=== PATIENT | female | born 1965 | race Two or more races ===

== ENCOUNTER 2021-10-03 11:40 | Emergency (ER) | payer SELFPAY ==
[~2021-10-03] VITALS: Ht 167.6 cm; Wt 59.0 kg
[2021-10-03 13:01] VITALS: BP 148/93
[2021-10-03] MEDS ORDERED: HYDROcodone-ACET 5/325MG TAB PO ONE (13:30)
[2021-10-03] MEDS ORDERED: LORA10CA7 PO (13:45)
[2021-10-03] MEDS ORDERED: BENZ100C19 PO (13:45)
[2021-10-03] MEDS ORDERED: OXYM-15 (23:01)
== END 2021-10-03 14:20 | disposition home or self-care (01) ==
LOC: ER 11:40
DX: S23.41XA Sprain of ribs, initial encounter (principal); R04.0 Epistaxis; J30.2 Other seasonal allergic rhinitis; X58.XXXA Exposure to other specified factors, initial encounter; Y93.89 Activity, other specified; Y92.89 Other specified places as the place of occurrence of the external cause; Y99.8 Other external cause status
CPT/HCPCS: 71045

== ENCOUNTER 2021-10-03 21:05 | Emergency (ER) | payer SELFPAY ==
[~2021-10-03] VITALS: Ht 167.6 cm; Wt 54.4 kg
[~2021-10-03 21:05] MED LIST: BENZ100C19 PO; LORA10CA7 PO
[2021-10-03] MEDS ORDERED: OXYMETAZOLINE HCL 0.05 % NASAL SPRAY 15ML EACHNOSTRI ONE (21:45)
[2021-10-03] MEDS ORDERED: ALPRAZolam 0.5 MG TAB PO ONE (21:45)
[2021-10-03 22:07] LABS: Basophils # (auto) 0.1 10 ^3/uL (0-0.2); Basophils % (auto) 1.2 % (0.0-2.0); Eosinophils # (auto) 0.3 10 ^3/uL (0-0.8); Hematocrit 36.7 % (36.0-46.0); Hemoglobin 12.8 g/dL (12.2-16.2); Lymphocytes % (auto) 33.5 % (10.0-50.0); Mean Corpuscular Hemoglobin 32.1 pg (28.0-32.0); Mean Corpuscular Volume 91.5 fL (80.0-100.0); Monocytes # (auto) 0.5 10 ^3/uL (0-1.3); Monocytes % (auto) 5.3 % (0.0-12.0); Neutrophils # (auto) 5.1 10 ^3/uL (1.6-8.6); Nucleated Red Blood Cells % 0.1 %; Red Blood Cells 4.01 10^6/uL (4.0-5.20); Red Cell Distribution Width 15.4 % (11.8-14.3); White Blood Cell 8.9 10^3/uL (4.4-10.8)
[2021-10-03 22:28] LABS: Albumin 3.2 g/dL (3.4-5.0); Calcium 8.8 mg/dL (8.5-10.1)
[2021-10-03 22:31] LABS: Bilirubin, Total 0.4 mg/dL (0.2-1.0); Total Protein 6.9 g/dL (6.4-8.2)
[2021-10-03] MEDS ORDERED: OXYM-15 (23:01)
[2021-10-03 23:24] VITALS: BP 160/105
[2021-10-04] MEDS ORDERED: OXYMETAZOLINE HCL 0.05 % NASAL SPRAY 15ML EACHNOSTRI ONE (00:30)
[2021-10-05] MEDS ORDERED: AML5T PO (10:32)
[2021-10-05] MEDS ORDERED: AMOX500T86 PO (10:32)
[2021-10-05] MEDS ORDERED: HYDR25TA5 PO (10:32)
== END 2021-10-04 00:32 | disposition home or self-care (01) ==
LOC: EDBD 21:05 → ER 21:35
DX: R04.0 Epistaxis (principal); I10 Essential (primary) hypertension; F41.9 Anxiety disorder, unspecified
CPT/HCPCS: 36415; 80053; 85025; 86850; 86900; 86901

== ENCOUNTER 2021-10-04 03:42 | Inpatient (IN) | payer OTHER ==
[~2021-10-04] VITALS: Ht 167.6 cm; Wt 62.5 kg
[~2021-10-04 03:42] MED LIST changes: -BENZ100C19 PO; +OXYM-15
[2021-10-04] MEDS ORDERED: fentaNYL CITRATE 100 MCG/2 ML VL IV ONE ×2 (05:00→05:30)
[2021-10-04] MEDS ORDERED: LABETALOL HCL 5 MG/ML 4ML SYRINGE IV ONE (07:00)
[2021-10-04 07:05] LABS: Basophils # (auto) 0.1 10 ^3/uL (0-0.2); Basophils % (auto) 0.4 % (0.0-2.0); Eosinophils # (auto) 0.1 10 ^3/uL (0-0.8); Eosinophils % (auto) 0.7 % (0.0-7.0); Hematocrit 31.5 % (36.0-46.0); Hemoglobin 10.7 g/dL (12.2-16.2); Lymphocytes # (auto) 2.1 10 ^3/uL (0.4-5.4); Lymphocytes % (auto) 14.7 % (10.0-50.0); Mean Corpuscular Hgb Conc. 33.8 g/dL (32.0-36.0); Mean Corpuscular Volume 91.6 fL (80.0-100.0); Monocytes # (auto) 0.5 10 ^3/uL (0-1.3); Monocytes % (auto) 3.8 % (0.0-12.0); Neutrophils # (auto) 11.2 10 ^3/uL (1.6-8.6); Neutrophils % (auto) 80.4 % (37.0-80.0); Red Blood Cells 3.44 10^6/uL (4.0-5.20); Red Cell Distribution Width 15.5 % (11.8-14.3)
[2021-10-04] MEDS ORDERED: hydrALAZINE HCL 20 MG/ML VL IV ONE (07:45)
[2021-10-04] MEDS ORDERED: HYDROcodone-ACET 10/325MG TAB PO ONE (08:45)
[2021-10-04] MEDS ORDERED: NITROGLYCERIN 0.4 MG SL TAB SL PRN (09:45)
[2021-10-04] MEDS ORDERED: hydrALAZINE HCL 20 MG/ML VL IV PRN (09:45)
[2021-10-04] MEDS ORDERED: MORPHINE SULFATE INJ 2 MG/ml SYRG IV PRN (09:45)
[2021-10-04] MEDS ORDERED: LABETALOL HCL 5 MG/ML 4ML SYRINGE IV PRN (09:45)
[2021-10-04 12:30] VITALS: BP 150/87
[2021-10-04] MEDS ORDERED: DOCUSATE SOD 100 MG CAP PO PRN (13:15)
[2021-10-04] MEDS ORDERED: METOPROLOL SUCCINATE XL 50 MG TAB PO ONE (13:15)
[2021-10-04] MEDS ORDERED: NIFEdipine ER 30 MG TAB PO ONE (13:15)
[2021-10-04] MEDS ORDERED: PANTOPRAZOLE 40 MG/10 ML VIAL INJ IV ONE (13:15)
[2021-10-04] MEDS ORDERED: ONDANSETRON HCL 4 MG/2 ML VIAL IV PRN (13:15)
[2021-10-04] MEDS ORDERED: IPRATROPIUM BROM 0.5 MG/2.5ML INH SOL NEB SCH (14:00)
[2021-10-04 15:30] VITALS: BP 150/87
[2021-10-04 15:53] LABS: Calcium 8.6 mg/dL (8.5-10.1); Magnesium 1.8 mg/dL (1.6-2.6); Potassium 3.2 mmol/L (3.5-5.1)
[2021-10-04 15:57] LABS: BUN/Creatinine Ratio 29.4; Bilirubin, Total 0.6 mg/dL (0.2-1.0); Phosphorus 2.6 mg/dL (2.5-4.90); Total Protein 6.5 g/dL (6.4-8.2)
[2021-10-04 16:30] VITALS: BP 132/73
[2021-10-04] MEDS: SODIUM CHLORIDE 0.9% 1,000 ML IV SCH (16:33)
[2021-10-04] MEDS: CLINDAMYCIN 600MG IV 50 ML IV SCH ×2 (19:06→22:02)
[2021-10-04] MEDS: HYDROcodone-ACET 5/325MG TAB PO PRN (19:06)
[2021-10-04 20:00] VITALS: BP 133/77
[2021-10-04 22:00] VITALS: BP 133/77
[2021-10-04] MEDS ORDERED: OXYMETAZOLINE HCL 0.05 % NASAL SPRAY 15ML EACHNOSTRI SCH (22:00)
[2021-10-04] MEDS: LORazepam 0.5 MG TAB PO PRN (22:02)
[2021-10-04 23:48] LABS: INR 1.06 (0.9-1.15); Partial Thromboplastin Time 23.2 sec (23.6-33.0)
[2021-10-04 23:51] LABS: BUN/Creatinine Ratio 16.9; Calcium 8.8 mg/dL (8.5-10.1); Potassium 3.3 mmol/L (3.5-5.1)
[2021-10-05] MEDS: HYDROcodone-ACET 5/325MG TAB PO PRN ×2 (02:10→08:05)
[2021-10-05 05:00] VITALS: BP 119/79
[2021-10-05] MEDS: CLINDAMYCIN 600MG IV 50 ML IV SCH (05:06)
[2021-10-05 05:21] LABS: Urine Bacteria NONE SEEN /hpf (None Seen); Urine Blood Negative /uL (Negative); Urine Hyaline Cast FEW /lpf (0 - 2); Urine Mucus FEW (None Seen); Urine WBC 1 /hpf (0 - 5)
[2021-10-05 05:31] LABS: Alcohol, Urine < 3.0 mg/dL (0-10); Amphetamine Screen, Urine NEGATIVE (NEGATIVE); Barbiturate Scree,Urine NEGATIVE (NEGATIVE); Benzodiazephine Screen, Urine POSITIVE (NEGATIVE); Cannabinoid Screen, Urine NEGATIVE (NEGATIVE); Cocaine Screen, Urine NEGATIVE (NEGATIVE); Opiate Scree,Urine NEGATIVE (NEGATIVE); Phencyclidine Screen, Urine NEGATIVE (NEGATIVE)
[2021-10-05 05:36] LABS: Basophils # (auto) 0.1 10 ^3/uL (0-0.2); Basophils % (auto) 0.7 % (0.0-2.0); Eosinophils # (auto) 0.2 10 ^3/uL (0-0.8); Eosinophils % (auto) 2.2 % (0.0-7.0); Hemoglobin 9.7 g/dL (12.2-16.2); Lymphocytes # (auto) 2.5 10 ^3/uL (0.4-5.4); Lymphocytes % (auto) 29.3 % (10.0-50.0); Mean Corpuscular Hemoglobin 31.5 pg (28.0-32.0); Mean Corpuscular Hgb Conc. 34.5 g/dL (32.0-36.0); Mean Corpuscular Volume 91.4 fL (80.0-100.0); Monocytes # (auto) 0.6 10 ^3/uL (0-1.3); Monocytes % (auto) 7.1 % (0.0-12.0); Neutrophils # (auto) 5.2 10 ^3/uL (1.6-8.6); Neutrophils % (auto) 60.7 % (37.0-80.0); Red Blood Cells 3.06 10^6/uL (4.0-5.20); Red Cell Distribution Width 15.7 % (11.8-14.3); White Blood Cell 8.6 10^3/uL (4.4-10.8)
[2021-10-05 05:52] LABS: Albumin 2.6 g/dL (3.4-5.0); Calcium 8.1 mg/dL (8.5-10.1); Magnesium 1.5 mg/dL (1.6-2.6); Potassium 3.5 mmol/L (3.5-5.1)
[2021-10-05] MEDS: SODIUM CHLORIDE 0.9% 1,000 ML IV SCH (05:55)
[2021-10-05 05:56] LABS: Cholesterol 141 mg/dL (< 200); HDL Cholesterol 48 mg/dL (40-59); LDL Cholesterol 84 mg/dL (< 100); Triglycerides 81 mg/dL (< 150)
[2021-10-05 05:57] LABS: BUN/Creatinine Ratio 18.6; Bilirubin, Total 0.4 mg/dL (0.2-1.0); CRP High Sensitivity 0.77 mg/dL (< 0.3); Phosphorus 3.5 mg/dL (2.5-4.90); Total Protein 5.8 g/dL (6.4-8.2)
[2021-10-05 06:00] LABS: INR 1.05 (0.9-1.15); Partial Thromboplastin Time 24.9 sec (23.6-33.0)
[2021-10-05] MEDS: LORazepam 0.5 MG TAB PO PRN (08:05)
[2021-10-05 08:51] VITALS: BP 132/85
[2021-10-05] MEDS ORDERED: cefTRIAXone 1GM/50ML D5W 50 ML IV SCH (09:00)
[2021-10-05] MEDS ORDERED: LORATADINE 10 MG TAB PO SCH (10:00)
[2021-10-05] MEDS ORDERED: METOPROLOL SUCCINATE XL 50 MG TAB PO SCH (10:00)
[2021-10-05] MEDS ORDERED: amLODIPine BESYLATE 5 MG TAB PO SCH (10:00)
[2021-10-05] MEDS ORDERED: HCTZ 25 MG TAB PO SCH (10:00)
[2021-10-05] MEDS ORDERED: NIFEdipine ER 30 MG TAB PO SCH (10:00)
[2021-10-05] MEDS ORDERED: PANTOPRAZOLE 40 MG/10 ML VIAL INJ IV SCH (10:00)
[2021-10-05] MEDS ORDERED: AML5T PO (10:32)
[2021-10-05] MEDS ORDERED: HYDR25TA5 PO (10:32)
[2021-10-05] MEDS ORDERED: AMOX500T86 PO (10:32)
[2021-10-05 12:20] VITALS: BP 132/85
[2021-10-05 13:00] VITALS: BP 123/71
[2021-10-07 11:47] LABS: Hepatitis A Ab IgM Negative; Hepatitis B Core IgM Negative; Hepatitis C Antibody Negative (Negative)
[2021-10-07 11:53] LABS: Hepatitis A Ab IgM Negative; Hepatitis B Core IgM Negative; Hepatitis C Antibody Negative (Negative)
== END 2021-10-05 14:00 | disposition home or self-care (01) | DRG 199 ==
LOC: ER 03:42 → EDBD 03:42 → TELE 09:45 → TELE-WESTW 11:51
PROVIDERS: ADMIT Hospitalist; ATTEND Internal Medicine Pulmonary Disease
PROC: 2Y41X5Z Packing of Nasal Region using Packing Material (ICD-10-PCS; principal; 2021-10-04)
DX: I16.1 Hypertensive emergency (principal); D64.9 Anemia, unspecified; R04.0 Epistaxis; E87.6 Hypokalemia; F17.200 Nicotine dependence, unspecified, uncomplicated; F41.9 Anxiety disorder, unspecified; I10 Essential (primary) hypertension; Z20.822 Contact with and (suspected) exposure to COVID-19; J30.9 Allergic rhinitis, unspecified; J32.9 Chronic sinusitis, unspecified; J44.9 Chronic obstructive pulmonary disease, unspecified; Z79.899 Other long term (current) drug therapy; Z91.19 Patient's noncompliance with other medical treatment and regimen
CPT/HCPCS: 36415; 36600; 70450; 76705; 80048; 80053; 80061; 80074; 80307; 81001; 82550; 82728; 82805; 83036; 83615; 83690; 83735; 83880; 84100; 84439; 84443; 84484; 84550; 85025; 85379; 85610; 85652; 85730; 86141; 86850; 86900; 86901; 87040; 87086; 93005; 93306; 93886; 96374; 96375; C9113; G0378; J0696; J3490

== ENCOUNTER 2021-12-04 16:52 | Emergency (ER) | payer MEDICAID, OTHER ==
[~2021-12-04] VITALS: Ht 167.6 cm; Wt 68.0 kg
[~2021-12-04 16:52] MED LIST changes: +AML5T PO; +AMOX500T86 PO; +HYDR25TA5 PO; -OXYM-15
[2021-12-04 17:27] VITALS: BP 100/58
[2021-12-04 18:53] LABS: Basophils # (auto) 0.1 10 ^3/uL (0-0.2); Basophils % (auto) 1.2 % (0.0-2.0); Eosinophils # (auto) 0.1 10 ^3/uL (0-0.8); Eosinophils % (auto) 1.3 % (0.0-7.0); Hematocrit 44.8 % (36.0-46.0); Hemoglobin 14.6 g/dL (12.2-16.2); Lymphocytes # (auto) 1.4 10 ^3/uL (0.4-5.4); Lymphocytes % (auto) 29.4 % (10.0-50.0); Mean Corpuscular Hgb Conc. 32.5 g/dL (32.0-36.0); Mean Corpuscular Volume 86.2 fL (80.0-100.0); Monocytes # (auto) 0.4 10 ^3/uL (0-1.3); Monocytes % (auto) 9.3 % (0.0-12.0); Neutrophils # (auto) 2.8 10 ^3/uL (1.6-8.6); Neutrophils % (auto) 58.8 % (37.0-80.0); Nucleated Red Blood Cells % 0.5 %; Red Cell Distribution Width 16.5 % (11.8-14.3); White Blood Cell 4.7 10^3/uL (4.4-10.8)
[2021-12-04 19:06] LABS: Albumin 4.2 g/dL (3.4-5.0); BUN/Creatinine Ratio 14.2; Calcium 9.4 mg/dL (8.5-10.1); Potassium 3.6 mmol/L (3.5-5.1)
[2021-12-04 19:15] LABS: Bilirubin, Total 0.3 mg/dL (0.2-1.0); Total Protein 7.8 g/dL (6.4-8.2)
== END 2021-12-04 23:59 | disposition left against medical advice (07) ==
LOC: ER 16:52
DX: R06.02 Shortness of breath (principal); I10 Essential (primary) hypertension
CPT/HCPCS: 36415; 71046; 80053; 85025; 93005

== ENCOUNTER → 2022-01-19 | Emergency (ER) | payer MEDICAID | END | disposition left against medical advice (07) | LOC: ER 00:24 | DX: M79.7 Fibromyalgia (principal); Z53.21 Procedure and treatment not carried out due to patient leaving prior to being seen by health care provider ==

== ENCOUNTER 2022-03-23 09:56 | Emergency (ER) | payer MEDICAID ==
[~2022-03-23] VITALS: Ht 167.6 cm; Wt 59.0 kg
[2022-03-23 10:55] LABS: Basophils # (auto) 0.1 10 ^3/uL (0-0.2); Basophils % (auto) 0.8 % (0.0-2.0); Eosinophils # (auto) 0.1 10 ^3/uL (0-0.8); Eosinophils % (auto) 0.8 % (0.0-7.0); Hematocrit 41.5 % (36.0-46.0); Hemoglobin 14.1 g/dL (12.2-16.2); Lymphocytes # (auto) 1.5 10 ^3/uL (0.4-5.4); Lymphocytes % (auto) 23.1 % (10.0-50.0); Monocytes # (auto) 0.5 10 ^3/uL (0-1.3); Monocytes % (auto) 8.2 % (0.0-12.0); Neutrophils # (auto) 4.4 10 ^3/uL (1.6-8.6); Neutrophils % (auto) 67.1 % (37.0-80.0); Nucleated Red Blood Cells % 0.2 %; Red Blood Cells 4.41 10^6/uL (4.0-5.20); Red Cell Distribution Width 17.9 % (11.8-14.3); White Blood Cell 6.5 10^3/uL (4.4-10.8)
[2022-03-23 11:03] LABS: Albumin 4.1 g/dL (3.4-5.0); Calcium 9.7 mg/dL (8.5-10.1); Potassium 4.3 mmol/L (3.5-5.1)
[2022-03-23 11:08] LABS: BUN/Creatinine Ratio 21.5; Bilirubin, Total 1.4 mg/dL (0.2-1.0); Total Protein 7.8 g/dL (6.4-8.2)
[2022-03-23] MEDS ORDERED: KETOROLAC TROMETH 30 MG/ML 1ML VIAL IV ONE (12:30)
[2022-03-23] MEDS ORDERED: SODIUM CHLORIDE 0.9% 1,000 ML IV ONE (12:30)
[2022-03-23] MEDS ORDERED: ALPRAZolam 0.5 MG TAB PO ONE (12:30)
[2022-03-23] MEDS ORDERED: KETOROLAC TROMETH 60MG/2ML VIAL IM ONE ×2 (17:45)
[2022-03-23] MEDS ORDERED: DICL50TA2 PO (17:49)
[2022-03-23] MEDS ORDERED: TRAM50TA2 PO (17:49)
[2022-03-23] MEDS ORDERED: CYCL-837 PO (17:49)
[2022-03-23] MEDS ORDERED: ALPR0.25 PO (17:49)
[2022-03-23 18:00] VITALS: BP 127/68
== END 2022-03-23 18:29 | disposition home or self-care (01) ==
LOC: ER 09:56
DX: G89.29 Other chronic pain (principal); M54.50 Low back pain, unspecified; F41.8 Other specified anxiety disorders; R74.8 Abnormal levels of other serum enzymes; I10 Essential (primary) hypertension; F17.210 Nicotine dependence, cigarettes, uncomplicated; Z79.2 Long term (current) use of antibiotics; Z79.899 Other long term (current) drug therapy
CPT/HCPCS: 36415; 80053; 84484; 85025; 93005; 96372; 99284; J1885

== ENCOUNTER 2023-08-14 09:30 | Emergency (ER) | payer MEDICAID ==
[~2023-08-14] VITALS: Ht 167.6 cm; Wt 75.0 kg
[~2023-08-14 09:30] MED LIST changes: +ALPR0.25 PO; +CYCL-837 PO; +DICL50TA2 PO; +LORA10CA PO; -LORA10CA7 PO; +TRAM50TA2 PO
[2023-08-14 10:09] LABS: Basophils # (auto) 0 10 ^3/uL (0-0.2); Basophils % (auto) 0.3 % (0.0-2.0); Eosinophils # (auto) 0 10 ^3/uL (0-0.8); Hematocrit 42.6 % (36.0-46.0); Hemoglobin 13.9 g/dL (12.2-16.2); Lymphocytes # (auto) 2.1 10 ^3/uL (0.4-5.4); Lymphocytes % (auto) 14.9 % (10.0-50.0); Mean Corpuscular Hemoglobin 28.7 pg (28.0-32.0); Mean Corpuscular Hgb Conc. 32.6 g/dL (32.0-36.0); Mean Corpuscular Volume 88.1 fL (80.0-100.0); Monocytes # (auto) 0.6 10 ^3/uL (0-1.3); Monocytes % (auto) 4.1 % (0.0-12.0); Neutrophils # (auto) 11.6 10 ^3/uL (1.6-8.6); Neutrophils % (auto) 80.7 % (37.0-80.0); Red Blood Cells 4.83 10^6/uL (4.0-5.20); Red Cell Distribution Width 15.6 % (11.8-14.3); White Blood Cell 14.4 10^3/uL (4.4-10.8)
[2023-08-14 10:27] LABS: Alanine Aminotransferase 31 U/L (7-40); Albumin 4.6 g/dL (3.2-4.8); Alkaline Phosphatase 167 U/L (46-116); Anion Gap 17 (5-15); Aspartate Aminotransferase 56 U/L (13-40); BUN/Creatinine Ratio 21.3 (10.0-20.0); Bilirubin, Total 1.1 mg/dL (0.2-1.0); Blood Urea Nitrogen 17 mg/dL (9-23); Calcium 9.3 mg/dL (8.5-10.1); Carbon Dioxide 20 mmol/L (20-30); Chloride 100 mmol/L (98-107); Glucose 78 mg/dL (74-106); Potassium 4.4 mmol/L (3.5-5.1); Sodium 137 mmol/L (136-145); Total Protein 6.7 g/dL (5.7-8.2)
[2023-08-14] MEDS: ALPRAZolam 0.5 MG TAB PO ONE (11:00)
[2023-08-14] MEDS ORDERED: LISI20TA56 PO (11:35)
[2023-08-14] MEDS ORDERED: ALPR1TAB2 PO (11:35)
[2023-08-14 11:48] VITALS: BP 156/95; PULSE 109; RESP 22; TEMP 97.8; O2SAT 95
== END 2023-08-14 11:51 | disposition home or self-care (01) ==
LOC: ER 09:30 → EDBD 09:30 → ER 11:50
DX: R07.89 Other chest pain (principal); F41.9 Anxiety disorder, unspecified; I16.0 Hypertensive urgency; I10 Essential (primary) hypertension; D72.829 Elevated white blood cell count, unspecified; F17.210 Nicotine dependence, cigarettes, uncomplicated; Z76.0 Encounter for issue of repeat prescription
CPT/HCPCS: 36415; 80053; 84484; 85025; 93005

== ENCOUNTER 2023-09-21 03:56 | Inpatient (IN) | payer MEDICAID ==
[~2023-09-21] VITALS: Ht 167.6 cm; Wt 72.8 kg
[~2023-09-21 03:56] MED LIST changes: +ALPR1TAB2 PO; +LISI20TA56 PO
[2023-09-21 04:34] LABS: Basophils # (auto) 0.1 10 ^3/uL (0-0.2); Basophils % (auto) 1.1 % (0.0-2.0); Eosinophils # (auto) 0.1 10 ^3/uL (0-0.8); Eosinophils % (auto) 1.2 % (0.0-7.0); Hematocrit 43.6 % (36.0-46.0); Hemoglobin 14.4 g/dL (12.2-16.2); Lymphocytes # (auto) 4.1 10 ^3/uL (0.4-5.4); Lymphocytes % (auto) 43.5 % (10.0-50.0); Mean Corpuscular Hemoglobin 28.6 pg (28.0-32.0); Mean Corpuscular Hgb Conc. 32.9 g/dL (32.0-36.0); Monocytes # (auto) 0.5 10 ^3/uL (0-1.3); Monocytes % (auto) 5.3 % (0.0-12.0); Neutrophils # (auto) 4.6 10 ^3/uL (1.6-8.6); Neutrophils % (auto) 48.9 % (37.0-80.0); Nucleated Red Blood Cells % 0.1 %; Red Blood Cells 5.02 10^6/uL (4.0-5.20); Red Cell Distribution Width 15.4 % (11.8-14.3); White Blood Cell 9.3 10^3/uL (4.4-10.8)
[2023-09-21] MEDS: SODIUM CHLORIDE 0.9% 1,000 ML IV ONE (04:35)
[2023-09-21] MEDS: LORazepam 2MG/ML-1ML VIAL IV ONE (04:40)
[2023-09-21 04:54] LABS: Chloride 101 mmol/L (98-107); Sodium 140 mmol/L (136-145)
[2023-09-21 04:55] LABS: Anion Gap 15 (5-15); Calcium 9.4 mg/dL (8.5-10.1); Carbon Dioxide 24 mmol/L (20-30)
[2023-09-21 05:00] LABS: BUN/Creatinine Ratio 8.8 (10.0-20.0); Blood Urea Nitrogen 6 mg/dL (9-23); Glucose 100 mg/dL (74-106)
[2023-09-21 05:01] LABS: Blood Alcohol 108.9 mg/dL (<10)
[2023-09-21] MEDS ORDERED: ONDANSETRON HCL 4 MG/2 ML VIAL IV PRN (06:30)
[2023-09-21] MEDS ORDERED: TEMAZEPAM 15 MG CAP PO PRN (06:30)
[2023-09-21] MEDS ORDERED: ALPRAZolam 0.5 MG TAB PO PRN (06:30)
[2023-09-21] MEDS ORDERED: NITROGLYCERIN 0.4 MG SL TAB SL PRN (06:30)
[2023-09-21] MEDS ORDERED: MORPHINE SULFATE INJ 2 MG/ml SYRG IV PRN (06:30)
[2023-09-21] MEDS: cloNIDine HCL 0.1 MG TAB PO ONE (07:52)
[2023-09-21] MEDS: POTASSIUM CHL 20 Meq TABLET PO ONE ×2 (08:10→09:15)
[2023-09-21 08:57] VITALS: BP 180/97; PULSE 86; RESP 20; TEMP 99; O2SAT 98
[2023-09-21 09:06] LABS: Triglycerides 93 mg/dL (< 150)
[2023-09-21 09:07] LABS: LDL Cholesterol 105 mg/dL (< 100)
[2023-09-21 09:08] LABS: Cholesterol 238 mg/dL (< 200); HDL Cholesterol 105 mg/dL (40-59)
[2023-09-21] MEDS: hydroCHLOROthiazide 25 MG TAB PO SCH (09:22)
[2023-09-21] MEDS: LISINOPRIL 20 MG TAB PO SCH (09:23)
[2023-09-21] MEDS: ALPRAZolam 0.5 MG TAB PO SCH (09:24)
[2023-09-21 11:00] VITALS: BP 172/92; PULSE 86; PULSE 90; RESP 16; RESP 20; TEMP 98.1; O2SAT 98
[2023-09-21 12:23] VITALS: BP 164/81; PULSE 96; RESP 20; TEMP 98.3; O2SAT 98
[2023-09-21] MEDS: hydrALAZINE HCL 20 MG/ML VL IV PRN (12:47)
[2023-09-21] MEDS: LORazepam 2MG/ML-1ML VIAL IV PRN (14:20)
[2023-09-21] MEDS: ACETAMINOPHEN 325 MG TAB PO PRN (14:20)
[2023-09-21 16:58] VITALS: BP 177/81; PULSE 96; RESP 16; TEMP 97.9; O2SAT 95
[2023-09-21] MEDS ORDERED: FOLIC ACID 1 MG, MAGNESIUM SULF SDV 50% 8 MEQ, MULTIPLE VITAMIN 10 ML, THIAMINE INJ 100... INJ SCH (18:00)
== END 2023-09-21 17:00 | disposition left against medical advice (07) | DRG 816 ==
LOC: ER 03:56 → OVERFLOW 06:33 → TELE-WESTW 08:41
PROVIDERS: ADMIT Internal Medicine; ATTEND Emergency Medicine
DX: T51.91XA Toxic effect of unspecified alcohol, accidental (unintentional), initial encounter (principal); E78.5 Hyperlipidemia, unspecified; I16.0 Hypertensive urgency; E87.6 Hypokalemia; F15.93 Other stimulant use, unspecified with withdrawal; F17.210 Nicotine dependence, cigarettes, uncomplicated; Z53.29 Procedure and treatment not carried out because of patient's decision for other reasons; F41.9 Anxiety disorder, unspecified; F10.929 Alcohol use, unspecified with intoxication, unspecified; I10 Essential (primary) hypertension; Z79.899 Other long term (current) drug therapy; Z98.891 History of uterine scar from previous surgery; Y90.5 Blood alcohol level of 100-119 mg/100 ml
CPT/HCPCS: 36415; 80048; 80061; 80320; 82306; 83735; 85025; 93005; G0378